=== PATIENT | female | born 1965 | race Caucasian/White ===

== ENCOUNTER 2018-07-18 03:04 | Inpatient (IN) | payer MEDICARE, OTHER ==
[2018-07-18 03:30] VITALS: BMI 29.0
--- NOTE | 2018-07-18 03:40 | PDOC ---
Attending Attestation - Resident Resident Name: Iván Lemus - ED Attending Attestation I have performed the following: I have examined & evaluated the patient, The case was reviewed & discussed with the resident, I agree w/resident's findings & plan - HPI HPI: 07/18/18 06:22 Pt comes with UTI and she states that she felt this way 5 years ago when she had stones, and she requred lithotripsy to remove the stone obstructions. Pt has left flank pain worse than right flnak pain. - Physicial Exam PE: 07/18/18 06:23 Agree with resident exam. - Medical Decision Making 07/18/18 06:24 Pt has UTI and she has mild hydro on the right and functional obstruction on the left and she will be admitted to the hospitalist. We will endorse to the AM ER team, who will endorse to the AM hospitalists. 07/18/18 06:41 Patient Name: GALA WALKER THIS IS A PRELIMINARY REPORT FROM [facility] DATE OF SERVICE: 2018-07-18 05:27:18 IMAGES: [id number] EXAM: CT abdomen and pelvis without contrast HISTORY: Concern for stone COMPARISON: None. FINDINGS: Abdomen Liver: Fatty infiltrated Spleen: Normal Pancreas: Normal [address] [facility] [address] [place] [address] Phone: [phone]) Fax: Email: [email or web address] Patient Information: : 1965 Order Type: Preliminary Name: DENISE CEDEÑO Sex: F Study Description: CT ABDOMEN AND PELVIS Modality: CT Location: [facility] Referring Physician: GERMAN LIZ Gallbladder: There is some increased attenuation within the gallbladder suggesting the presence of stones, or sludge Stomach: Normal Small bowel: Normal Large bowel: Normal Appendix: Normal Adrenals:Normal Kidneys: There is mild left-sided hydronephrosis. Ureter is normal in caliber. There is no focal stone identified Vascular: Normal Lymphatic: Normal Peritoneal: No free peritoneal air or fluid Pelvis: Uterus: normal Rectum: Normal Bladder: Normal The inferior thorax: Normal General: Skeletal: Normal Abdominal wall: Normal IMPRESSION: Mild left-sided hydronephrosis may be related to a functional obstruction of the left ureteropelvic junction. Correlation with history and urinalysis is recommended
[2018-07-18 04:02] LABS: URINE APPEARANCE CLOUDY; URINE BILIRUBIN NEGATIVE (<2.0 mg/dL); URINE COLOR LTYELLOW; URINE GLUCOSE (UA) NEGATIVE (NEGATIVE); URINE KETONE NEGATIVE (NEGATIVE); URINE LEUK ESTERASE 3+ (NEGATIVE); URINE NITRITE NEGATIVE (NEGATIVE); URINE PROTEIN 1+ (NEGATIVE); URINE UROBILINOGEN NEGATIVE mg/dL (0.2-1.0)
[2018-07-18 04:06] LABS: URINE BACTERIA FEW /hpf (NONE SEEN); URINE MUCUS RARE; YEAST MANY
[2018-07-18 04:18] LABS: BASO % 0.6 % (0-2.0); EOS % 0.4 % (0-4.5); HEMATOCRIT 38.5 % (32.4-45.2); HEMOGLOBIN 12.3 GM/dL (10.7-15.3); LYMPH % 9.5 % (8-40); MCHC 31.8 g/dl (32.0-36.0); MEAN CELL VOLUME 85.1 fl (80-96); MEAN PLT VOLUME 9.1 fl (7.5-11.1); MONO % 6.8 % (3.8-10.2); NEUT % 82.7 % (42.8-82.8); PLATELET COUNT 260 K/MM3 (134-434); RBC 4.53 M/mm3 (3.60-5.2); RDW 12.5 % (11.6-15.6); WHITE BLOOD COUNT 15.3 K/mm3 (4.0-10.0)
[2018-07-18] MEDS ORDERED: PIPERACILLIN/TAZOB 3.375 GM 3.375 GM in DEXTROSE 5%-WATER - 50 ML IVPB ONE (04:34)
[2018-07-18 04:35] LABS: ALBUMIN 3.5 g/dl (3.4-5.0); ALK PHOS 98 U/L (45-117); ANION GAP 7 MMOL/L (8-16); BILIRUBIN,TOTAL 0.5 mg/dL (0.2-1); BLOOD UREA NITROGEN 15 mg/dL (7-18); CALCIUM 8.7 mg/dL (8.5-10.1); CHLORIDE 100 mmol/L (98-107); CO2 26 mmol/L (21-32); GLUCOSE,RANDOM 201 mg/dL (74-106); POTASSIUM 4.2 mmol/L (3.5-5.1); SGOT/AST 53 U/L (15-37); SGPT/ALT 36 U/L (13-61); SODIUM 133 mmol/L (136-145); TOT PROT 7.6 g/dl (6.4-8.2)
[2018-07-18] MEDS ORDERED: SODIUM CHLORIDE 1,000 ML IV STA (04:36)
[2018-07-18] MEDS ORDERED: ACETAMINOPHEN 1000 MG/100 ML VIAL (NON FORMULARY) IVPB ONE (04:37)
[2018-07-18] MEDS ORDERED: ACETAMINOPHEN INJECTION 100 ML IVPB ONE (04:38)
[2018-07-18] MEDS ORDERED: PIPERACILLIN/TAZOB 3.375 GM 3.375 GM/50 ML BAG IVPB ONE (04:39)
[2018-07-18] MEDS ORDERED: FLUCONAZOLE 50 MG TABLET PO ONE (04:47)
[2018-07-18] MEDS ORDERED: FLUCONAZOLE 100 MG TABLET (UD) ONE (04:51)
[2018-07-18] MEDS ORDERED: FLUCONAZOLE 100 MG TABLET (UD) PO ONE (05:00)
--- NOTE | 2018-07-18 07:47 | PDOC ---
History of Present Illness - General Chief Complaint: Urinary Problem Stated Complaint: URINE PROBLEM Time Seen by Provider: 07/18/18 03:39 - History of Present Illness Initial Comments: 07/18/18 08:11 53f with pmh of cystic sling sor stress incontinence by dr. cage 2 years ago and kidney stones presents with dysuria and kidney pain for the past 3 days. No fever but chills overnight. No blood in the urine but foul smell appreciated. No difficulty passing urine just pain. Did not try taking any medications. Past History - Past Medical History Allergies/Adverse Reactions: Allergies Allergy/AdvReac Type Severity Reaction Status Date / Time No Known Drug Allergies Allergy Verified 07/18/18 03:41 Home Medications: Ambulatory Orders [place] Carbonate [Eskalith -] 150 mg PO AM 07/18/18 [place] Carbonate [Lithobid] 300 mg PO HS 07/18/18 Metformin HCl [Glucophage] 500 mg PO BID 07/18/18 Risperidone 2 mg PO HS 07/18/18 Venlafaxine HCl ER [Effexor Xr -] 300 mg PO DAILY 07/18/18 COPD: No Diabetes: Yes Hypercholesterolemia: Yes (SL ELEVATED) Psychiatric Problems: Yes - Suicide/Smoking/Psychosocial Hx Smoking History: Never smoked Have you smoked in the past 12 months: No Information on smoking cessation initiated: No Hx Alcohol Use: No Drug/Substance Use Hx: No Substance Use Type: None Hx Substance Use Treatment: No Review of Systems - Review of Systems Able to Perform ROS?: Yes Is the patient limited Iraqi proficient: No Constitutional: Yes: See HPI, Chills HEENTM: No: Symptoms Reported Respiratory: No: Symptoms reported Cardiac (ROS): No: Symptoms Reported ABD/GI: No: Symptoms Reported : Yes: See HPI Musculoskeletal: No: Symptoms Reported Integumentary: No: Symptoms Reported All Other Systems: Reviewed and Negative *Physical Exam - Vital Signs Last Vital Signs Temp Pulse Resp BP Pulse Ox 98.3 F 75 16 133/74 99 07/18/18 06:25 07/18/18 06:25 07/18/18 06:25 07/18/18 06:25 07/18/18 06:25 - Physical Exam General Appearance: Yes: Nourished, Appropriately Dressed. No: Apparent Distress HEENT: positive: EOMI, CHET, Normal ENT Inspection Respiratory/Chest: positive: Lungs Clear, Normal Breath Sounds. negative: Chest Tender, Respiratory Distress Cardiovascular: positive: Regular Rhythm, Regular Rate, S1, S2 Gastrointestinal/Abdominal: positive: Normal Bowel Sounds, Flat, Soft. negative : Tender Musculoskeletal: positive: CVA Tenderness (bilaterally) Extremity: positive: Normal Capillary Refill, Normal Inspection, Normal Range of Motion Integumentary: positive: Normal Color, Dry, Warm Neurologic: positive: Fully Oriented, Alert, Normal Mood/Affect ED Treatment Course - LABORATORY CBC & Chemistry Diagram: 07/18/18 04:05 07/18/18 04:05 - ADDITIONAL ORDERS Additional order review: Laboratory Results 07/18/18 07/18/18 07/18/18 04:05 03:50 03:50 Sodium 133 L Potassium 4.2 Chloride 100 Carbon Dioxide 26 Anion Gap 7 L BUN 15 Creatinine 1.0 Creat Clearance w eGFR 58.45 Random Glucose 201 H Calcium 8.7 Total Bilirubin 0.5 AST 53 H ALT 36 Alkaline Phosphatase 98 Total Protein 7.6 Albumin 3.5 Urine Color Ltyellow Urine Appearance Cloudy Urine pH 6.0 Ur Specific [place] 1.010 Urine Protein 1+ H Urine Glucose (UA) Negative Urine Ketones Negative Urine Blood 2+ H Urine Nitrite Negative Urine Bilirubin Negative Urine Urobilinogen Negative Ur Leukocyte Esterase 3+ H Urine WBC (Auto) 279 Urine RBC (Auto) 47 Urine Bacteria Few Urine Mucus Rare Urine Yeast Many Urine HCG, Qual Negative 07/18/18 04:05 RBC 4.53 MCV 85.1 MCHC 31.8 L RDW 12.5 MPV 9.1 Neutrophils % 82.7 Lymphocytes % 9.5 Monocytes % 6.8 Eosinophils % 0.4 Basophils % 0.6 - RADIOLOGY Radiology Studies Ordered: Category Date Time Status SPIRAL- RENAL-STONE CT [CT] Stat CT Scan 07/18/18 04:34 Taken - Medications Given in the ED: ED Medications Discontinued Medications Generic Name Dose Route Start Last Admin Trade Name Freq PRN Reason Stop Dose Admin Acetaminophen 1,000 mg 07/18/18 04:37 07/18/18 04:40 Ofirmev Injection - IVPB 07/18/18 04:38 1,000 mg ONCE ONE Administration Fluconazole 150 mg 07/18/18 05:00 07/18/18 05:01 Diflucan - PO 07/18/18 05:01 150 mg ONCE ONE Administration Piperacillin Sod/Tazobactam 50 mls @ 100 mls/hr 07/18/18 04:34 07/18/18 04:55 Sod 3.375 gm/ Dextrose IVPB 07/18/18 05:03 100 mls/hr ONCE ONE Administration Protocol Sodium Chloride 1,000 mls @ 1,000 mls/hr 07/18/18 04:36 07/18/18 04:40 Normal Saline - IV 07/18/18 05:35 1,000 mls/hr ASDIR STA Administration Medical Decision Making - Medical Decision Making 07/18/18 08:16 uti vs pyelonephritis vs nephrolithiasis UA positive for UTI. However spiral ct shows evidence of mild left nephrolithiasis and functional obstruction. Will admit to floors with urology consult. Pain control. 07/19/18 01:04 *DC/Admit/Observation/Transfer Diagnosis at time of Disposition: Complicated UTI (urinary tract infection) - Discharge Dispostion Condition at time of disposition: Improved Decision to Admit order: Yes - Referrals - Patient Instructions - Post Discharge Activity
--- NOTE | 2018-07-18 10:07 | HP ---
CHIEF COMPLAINT: burning on urination, L flank pain, fever PCP: HISTORY OF PRESENT ILLNESS: Pt is a 53 y/o F with PMH kidney stone requiring lithotripsy and prior sling placed by Dr. Walton in 2015. She presents to ED with 4 days of burning on urination associated with urinary frequency, and subjective fever with chills for one day as well as L flank pain. ER course was notable for: (1) vitals wnl (2) wbc 15.3, Na 133, UA pos for prot, blood, LE, wbc, many yeast (3) CTAP: L hydro, no stone visualized Recent Travel: denies PAST MEDICAL HISTORY: Depression PAST SURGICAL HISTORY: Bladder sling 2016 Social History: Smoking: denies Alcohol: denies Drugs: denies Family History: Allergies No Known Drug Allergies Allergy (Verified 07/18/18 03:41) HOME MEDICATIONS: Home Medications Medication Instructions Recorded [place] Carbonate [Eskalith -] 150 mg PO AM 07/18/18 [place] Carbonate [Lithobid] 300 mg PO HS 07/18/18 Metformin HCl [Glucophage] 500 mg PO BID 07/18/18 Risperidone 2 mg PO HS 07/18/18 Venlafaxine HCl ER [Effexor Xr -] 300 mg PO DAILY 07/18/18 REVIEW OF SYSTEMS CONSTITUTIONAL: fever, Absent: chills, diaphoresis, generalized weakness, malaise, loss of appetite, weight change HEENT: Absent: rhinorrhea, nasal congestion, throat pain, throat swelling, difficulty swallowing, mouth swelling, ear pain, eye pain, visual changes CARDIOVASCULAR: Absent: chest pain, syncope, palpitations, irregular heart rate, lightheadedness , peripheral edema RESPIRATORY: Absent: cough, shortness of breath, dyspnea with exertion, orthopnea, wheezing, stridor, hemoptysis GASTROINTESTINAL: Absent: abdominal pain, abdominal distension, nausea, vomiting, diarrhea, constipation, melena, hematochezia GENITOURINARY: dysuria, frequency, urgency, flank pain Absent: , hesitancy, hematuria, genital pain MUSCULOSKELETAL: Absent: myalgia, arthralgia, joint swelling, back pain, neck pain SKIN: Absent: rash, itching, pallor HEMATOLOGIC/IMMUNOLOGIC: Absent: easy bleeding, easy bruising, lymphadenopathy, frequent infections ENDOCRINE: Absent: unexplained weight gain, unexplained weight loss, heat intolerance, cold intolerance NEUROLOGIC: Absent: headache, focal weakness or paresthesias, dizziness, unsteady gait, seizure, mental status changes, bladder or bowel incontinence PSYCHIATRIC: depression Absent: anxiety, , suicidal or homicidal ideation, hallucinations. PHYSICAL EXAMINATION Vital Signs - 24 hr 07/18/18 07/18/18 07/18/18 03:29 06:25 09:14 Temperature 99.0 F 98.3 F 98.6 F Pulse Rate 92 H Pulse Rate [ 75 75 Right Radial] Respiratory 20 16 18 Rate Blood Pressure 153/89 Blood Pressure 133/74 142/86 [Right Arm] O2 Sat by Pulse 99 99 100 Oximetry (%) Gen: NAD, sitting in bed HEENT: NCAT, eomi Neck: supple, no jvd Cardio: rrr, normal s1s2, no mrg Pulm: cta b/l Abd: nondistended, soft, nontender, Mild-Moderate L flank tenderness to fist percussion Ext: no edema Laboratory Results - last 24 hr 07/18/18 07/18/18 07/18/18 03:50 03:50 04:05 WBC 15.3 H RBC 4.53 Hgb 12.3 Hct 38.5 MCV 85.1 MCH 27.0 MCHC 31.8 L RDW 12.5 Plt Count 260 MPV 9.1 Absolute Neuts (auto) 12.6 H Neutrophils % 82.7 Lymphocytes % 9.5 Monocytes % 6.8 Eosinophils % 0.4 Basophils % 0.6 Nucleated RBC % 0 Sodium Potassium Chloride Carbon Dioxide Anion Gap BUN Creatinine Creat Clearance w eGFR Random Glucose Calcium Total Bilirubin AST ALT Alkaline Phosphatase Total Protein Albumin Urine Color Ltyellow Urine Appearance Cloudy Urine pH 6.0 Ur Specific [place] 1.010 Urine Protein 1+ H Urine Glucose (UA) Negative Urine Ketones Negative Urine Blood 2+ H Urine Nitrite Negative Urine Bilirubin Negative Urine Urobilinogen Negative Ur Leukocyte Esterase 3+ H Urine WBC (Auto) 279 Urine RBC (Auto) 47 Urine Bacteria Few Urine Mucus Rare Urine Yeast Many Urine HCG, Qual Negative 07/18/18 04:05 WBC RBC Hgb Hct MCV MCH MCHC RDW Plt Count MPV Absolute Neuts (auto) Neutrophils % Lymphocytes % Monocytes % Eosinophils % Basophils % Nucleated RBC % Sodium 133 L Potassium 4.2 Chloride 100 Carbon Dioxide 26 Anion Gap 7 L BUN 15 Creatinine 1.0 Creat Clearance w eGFR 58.45 Random Glucose 201 H Calcium 8.7 Total Bilirubin 0.5 AST 53 H ALT 36 Alkaline Phosphatase 98 Total Protein 7.6 Albumin 3.5 Urine Color Urine Appearance Urine pH Ur Specific [place] Urine Protein Urine Glucose (UA) Urine Ketones Urine Blood Urine Nitrite Urine Bilirubin Urine Urobilinogen Ur Leukocyte Esterase Urine WBC (Auto) Urine RBC (Auto) Urine Bacteria Urine Mucus Urine Yeast Urine HCG, Qual ASSESSMENT/PLAN: Pt is a 53 y/o F with PMH renal stones, bladder sling who presented to ED with complaint of dysuria and urgency. Found to have L flank tenderness, UTI, and leukocytosis. Admitted for L pyelonephritis with hydronephrosis. #L pyelonephritis (complicated UTI) -? obstructive. Hydronephrosis on CT. No stone visualized -NB: hx procedure by Dr. Walton in 2016 -UA pos for UTI -leukocytosis -Zosyn/Diflucan given in ED -c/w Rocephin/Diflucan -UCx pending -NS -Uro consulted. Pending call back for recs #Depression -c/w home meds -Risperidone, [place], Venlafaxine #DM -DM diet -BGM ACHS -ISS ACHS #Mild hyponatremia -NS #FEN -NS -hyponatremia -DM diet #PPx -hold AC in anticipation of possible Uro procedure -SCDs #Dispo -Med/surg for pyelo with hydro Darwin Estrada MD PGY-2 IM Visit type - Emergency Visit Emergency Visit: Yes ED Registration Date: 07/18/18 Care time: The patient presented to the Emergency Department on the above date and was hospitalized for further evaluation of their emergent condition. - New Patient This patient is new to me today: Yes Date on this admission: 07/18/18 - Critical Care Critical Care patient: No
[2018-07-18] MEDS ORDERED: CEFTRIAXONE 1 GM in DEXTROSE 5%-WATER - 50 ML IVPB SCH (10:30)
--- NOTE | 2018-07-18 10:31 | PN ---
Teaching Attending Note Name of Resident: Darwin Estrada ATTENDING PHYSICIAN STATEMENT I saw and evaluated the patient. I reviewed the resident's note and discussed the case with the resident. I agree with the resident's findings and plan as documented. SUBJECTIVE: c/o having left flank pain. OBJECTIVE: Vital Signs Temperature 98.6 F 07/18/18 09:14 Pulse Rate 75 07/18/18 09:14 Respiratory Rate 18 07/18/18 09:14 Blood Pressure 142/86 07/18/18 09:14 O2 Sat by Pulse Oximetry (%) 100 07/18/18 09:14 General Appearance: well nourished, no acute distress. HEENT: positive: EOMI, CHET, Normal ENT Inspection Respiratory/Chest:CTA BL , no r/r/w Cardiovascular: Regular Rhythm, Regular Rate, S1, S2 Gastrointestinal/Abdominal: Normal Bowel Sounds, soft, nt, nd. Musculoskeletal: positive CVA Tenderness Extremity: no edema, pulses are positive Integumentary: positive: Normal Color, Dry, Warm Neurologic: Oriented x3 , cn 2-12 grossly intact. CBCD WBC 15.3 K/mm3 (4.0-10.0) H 07/18/18 04:05 RBC 4.53 M/mm3 (3.60-5.2) 07/18/18 04:05 Hgb 12.3 GM/dL (10.7-15.3) 07/18/18 04:05 Hct 38.5 % (32.4-45.2) 07/18/18 04:05 MCV 85.1 fl (80-96) 07/18/18 04:05 MCHC 31.8 g/dl (32.0-36.0) L 07/18/18 04:05 RDW 12.5 % (11.6-15.6) 07/18/18 04:05 Plt Count 260 K/MM3 (134-434) 07/18/18 04:05 MPV 9.1 fl (7.5-11.1) 07/18/18 04:05 CMP Sodium 133 mmol/L (136-145) L 07/18/18 04:05 Potassium 4.2 mmol/L (3.5-5.1) 07/18/18 04:05 Chloride 100 mmol/L (98-107) 07/18/18 04:05 Carbon Dioxide 26 mmol/L (21-32) 07/18/18 04:05 Anion Gap 7 MMOL/L (8-16) L 07/18/18 04:05 BUN 15 mg/dL (7-18) 07/18/18 04:05 Creatinine 1.0 mg/dL (0.55-1.3) 07/18/18 04:05 Creat Clearance w eGFR 58.45 (>60) 07/18/18 04:05 Random Glucose 201 mg/dL (74-106) H 07/18/18 04:05 Calcium 8.7 mg/dL (8.5-10.1) 07/18/18 04:05 Total Bilirubin 0.5 mg/dL (0.2-1) 07/18/18 04:05 AST 53 U/L (15-37) H 07/18/18 04:05 ALT 36 U/L (13-61) 07/18/18 04:05 Alkaline Phosphatase 98 U/L (45-117) 07/18/18 04:05 Total Protein 7.6 g/dl (6.4-8.2) 07/18/18 04:05 Albumin 3.5 g/dl (3.4-5.0) 07/18/18 04:05 Current Medications Generic Name Dose Route Start Last Admin Trade Name Nigel PRN Reason Stop Dose Admin Fluconazole 200 mg 07/18/18 10:21 Diflucan - PO 07/18/18 10:22 DAILY ONE Sodium Chloride 1,000 mls @ 75 mls/hr 07/18/18 10:00 Normal Saline - IV ASDIR SHAWN Ceftriaxone Sodium 1 gm/ 100 mls @ 200 mls/hr 07/18/18 10:30 Dextrose IVPB DAILY [facility] Protocol Insulin Aspart 1 vial 07/18/18 11:00 Novolog Vial Sliding Scale - SQ ACHS SHAWN Protocol [place] Carbonate 300 mg 07/18/18 22:00 Eskalith - PO HS [facility] [place] Carbonate 150 mg 07/19/18 07:00 Eskalith - PO AM SHAWN Morphine Sulfate 2 mg 07/18/18 09:47 Morphine Sulfate IVPUSH Q4H PRN PAIN LEVEL 1-5 Risperidone 2 mg 07/18/18 22:00 Risperdal - PO HS [facility] Venlafaxine HCl 300 mg 07/18/18 11:00 Effexor Xr - PO DAILY [facility] Home Medications Medication Instructions Recorded [place] Carbonate [Eskalith -] 150 mg PO AM 07/18/18 [place] Carbonate [Lithobid] 300 mg PO HS 07/18/18 Metformin HCl [Glucophage] 500 mg PO BID 07/18/18 Risperidone 2 mg PO HS 07/18/18 Venlafaxine HCl ER [Effexor Xr -] 300 mg PO DAILY 07/18/18 Urine Test Results Urine Color Ltyellow 07/18/18 03:50 Urine Appearance Cloudy 07/18/18 03:50 Urine pH 6.0 (5.0-8.0) 07/18/18 03:50 Ur Specific [place] 1.010 (1.010-1.035) 07/18/18 03:50 Urine Protein 1+ (NEGATIVE) H 07/18/18 03:50 Urine Glucose (UA) Negative (NEGATIVE) 07/18/18 03:50 Urine Ketones Negative (NEGATIVE) 07/18/18 03:50 Urine Blood 2+ (NEGATIVE) H 07/18/18 03:50 Urine Nitrite Negative (NEGATIVE) 07/18/18 03:50 Urine Bilirubin Negative (<2.0 mg/dL) 07/18/18 03:50 Ur Leukocyte Esterase 3+ (NEGATIVE) H 07/18/18 03:50 Urine Bacteria Few /hpf (NONE SEEN) 07/18/18 03:50 Urine Mucus Rare 07/18/18 03:50 ASSESSMENT AND PLAN: Patient is a 53 y/o Female with PMHx renal stones, bladder sling who presented to ED with complaint of dysuria and urgency. was found to have L flank tenderness, UTI, and leukocytosis and was found to have Left pyelonephritis with hydronephrosis. #Acute Left pyelonephritis due to UTI on IV Rocephin 2gm IV daily #Chronic depression continue home meds, Risperidone, [place], Venlafaxine #T2DM ; DM diet; BGM ACHS; ISS ACHS #Acute mild hyponatremia , urine for sodium since patient is on [place] to r/o SIADH on IV NS for now. dvt px: scd
[2018-07-18] MEDS: SODIUM CHLORIDE 1,000 ML IV SCH (10:52)
[2018-07-18] MEDS: INSULIN SLIDING SCALE (NOVOLOG) 1 VIAL SQ SCH ×4 (11:31→21:52)
[2018-07-18] MEDS ORDERED: cefTRIAXone SODIUM 1 GM VIAL ONE (11:57)
[2018-07-18] MEDS ORDERED: DEXTROSE 5%-WATER 100 ML IVPB ONE (11:57)
[2018-07-18] MEDS: FLUCONAZOLE 100 MG TABLET (UD) PO SCH (12:06)
[2018-07-18] MEDS ORDERED: PT OWN MED DRAWER 7, Y5N ONE (12:10)
[2018-07-18] MEDS: VENLAFAXINE HCL 75 MG E.R. CAPSULES (FP) PO SCH (12:13)
[2018-07-18 16:08] LABS: URINE APPEARANCE CLEAR; URINE BILIRUBIN NEGATIVE (<2.0 mg/dL); URINE COLOR STRAW; URINE GLUCOSE (UA) NEGATIVE (NEGATIVE); URINE KETONE NEGATIVE (NEGATIVE); URINE LEUK ESTERASE TRACE (NEGATIVE); URINE NITRITE NEGATIVE (NEGATIVE); URINE PROTEIN NEGATIVE (NEGATIVE); URINE UROBILINOGEN NEGATIVE mg/dL (0.2-1.0)
[2018-07-18] MEDS: risperiDONE 1 MG TABLET (FP) PO SCH (21:45)
[2018-07-18] MEDS: MORPHINE SULFATE 2 MG/ML VIAL IVPUSH PRN (21:45)
[2018-07-18] MEDS ORDERED: LITHIUM CARBONATE 300 MG CAPSULE (FP) PO SCH (22:00)
[2018-07-19] MEDS: SODIUM CHLORIDE 1,000 ML IV SCH ×3 (02:17→21:09)
[2018-07-19] MEDS: MORPHINE SULFATE 2 MG/ML VIAL IVPUSH PRN (06:13)
[2018-07-19] MEDS: INSULIN SLIDING SCALE (NOVOLOG) 1 VIAL SQ SCH ×4 (06:13→21:41)
[2018-07-19 07:48] LABS: BASO % 0.5 % (0-2.0); HEMATOCRIT 37.5 % (32.4-45.2); HEMOGLOBIN 11.9 GM/dL (10.7-15.3); LYMPH % 19.6 % (8-40); MCH 27.1 pg (25.7-33.7); MCHC 31.7 g/dl (32.0-36.0); MEAN CELL VOLUME 85.5 fl (80-96); MEAN PLT VOLUME 8.9 fl (7.5-11.1); MONO % 8.6 % (3.8-10.2); NEUT % 70.3 % (42.8-82.8); PLATELET COUNT 264 K/MM3 (134-434); RBC 4.38 M/mm3 (3.60-5.2); RDW 12.7 % (11.6-15.6); WHITE BLOOD COUNT 11.2 K/mm3 (4.0-10.0)
[2018-07-19 07:51] LABS: ALBUMIN 3.1 g/dl (3.4-5.0); ALK PHOS 89 U/L (45-117); ANION GAP 8 MMOL/L (8-16); BILIRUBIN,TOTAL 0.4 mg/dL (0.2-1); BLOOD UREA NITROGEN 11 mg/dL (7-18); CALCIUM 8.4 mg/dL (8.5-10.1); CHLORIDE 107 mmol/L (98-107); CO2 24 mmol/L (21-32); CREATININE 0.7 mg/dL (0.55-1.3); GLUCOSE,RANDOM 143 mg/dL (74-106); PHOSPHOROUS 3.3 mg/dL (2.5-4.9); POTASSIUM 4.3 mmol/L (3.5-5.1); SGOT/AST 69 U/L (15-37); SGPT/ALT 50 U/L (13-61); SODIUM 139 mmol/L (136-145); TOT PROT 6.9 g/dl (6.4-8.2)
[2018-07-19 07:52] LABS: INR 1.13 (0.83-1.09); PROTHROMBIN TIME (PATIENT) 13.3 SEC (9.7-13.0)
[2018-07-19] MEDS ORDERED: DEXTROSE 5%-WATER 100 ML IVPB ONE (09:54)
[2018-07-19] MEDS ORDERED: cefTRIAXone SODIUM 1 GM VIAL ONE (09:54)
[2018-07-19] MEDS: FLUCONAZOLE 100 MG TABLET (UD) PO SCH (09:58)
[2018-07-19] MEDS: CEFTRIAXONE 2 GM in DEXTROSE 5%-WATER 100 ML IVPB SCH (09:59)
[2018-07-19] MEDS ORDERED: LITHIUM CARBONATE 150 MG CAPSULE PO SCH (10:00)
[2018-07-19] MEDS: VENLAFAXINE HCL 75 MG E.R. CAPSULES (FP) PO SCH (10:03)
[2018-07-19] MEDS ORDERED: INSULIN (NOVOLOG) ASPART 100 UNITS/ML 10ML VIAL ONE ×2 (12:16→21:19)
--- NOTE | 2018-07-19 16:11 | PN ---
Physical Exam: SUBJECTIVE: Patient seen and examined. Pt. endorses pain in left flank, Morphine x 2 is given. Pt. denies blood in urine, fevers or dysuria. Pt. c/o headache 8/10 pain in a band like pattern around head. Light and sound had no effect on headache. OBJECTIVE: Vital Signs Period Temp Pulse Resp BP Sys/Mena Pulse Ox Last 24 Hr 98.8 F-99.1 F 75-81 16-20 144-150/85-93 96-98 GENERAL: The patient is awake, alert, and fully oriented, in no acute distress. HEAD: Normal with no signs of trauma. EYES: PERRL, extraocular movements intact, sclera anicteric, conjunctiva clear. No ptosis. ENT: Ears normal, nares patent, oropharynx clear without exudates, moist mucous membranes. LUNGS: Breath sounds equal, clear to auscultation bilaterally, no wheezes, no crackles, no accessory muscle use, No CVA tenderness. HEART: Regular rate and rhythm, S1, S2 without murmur ABDOMEN: Soft, nontender, nondistended, normoactive bowel sounds, no guarding, no rebound. EXTREMITIES: 2+ dorsal pedal, pulses, warm, well-perfused, no edema, no calf tenderness. NEUROLOGICAL: Normal speech, gait not observed. PSYCH: Normal mood, normal affect. SKIN: Warm, dry, normal turgor Laboratory Results - last 24 hr 07/18/18 07/18/18 07/18/18 15:06 16:59 21:51 WBC RBC Hgb Hct MCV MCH MCHC RDW Plt Count MPV Absolute Neuts (auto) Neutrophils % Lymphocytes % Monocytes % Eosinophils % Basophils % Nucleated RBC % PT with INR INR Sodium Potassium Chloride Carbon Dioxide Anion Gap BUN Creatinine Creat Clearance w eGFR POC Glucometer 195 121 Random Glucose Calcium Phosphorus Magnesium Total Bilirubin AST ALT Alkaline Phosphatase Total Protein Albumin Urine WBC (Auto) 20 Urine RBC (Auto) 7 Ur Random Sodium Ur Random Potassium Ur Random Chloride 07/19/18 07/19/18 07/19/18 06:00 06:12 06:30 WBC 11.2 H RBC 4.38 Hgb 11.9 Hct 37.5 MCV 85.5 MCH 27.1 MCHC 31.7 L RDW 12.7 Plt Count 264 MPV 8.9 Absolute Neuts (auto) 7.8 Neutrophils % 70.3 Lymphocytes % 19.6 D Monocytes % 8.6 Eosinophils % 1.0 D Basophils % 0.5 Nucleated RBC % 0 PT with INR INR Sodium Potassium Chloride Carbon Dioxide Anion Gap BUN Creatinine Creat Clearance w eGFR POC Glucometer 148 Random Glucose Calcium Phosphorus Magnesium Total Bilirubin AST ALT Alkaline Phosphatase Total Protein Albumin Urine WBC (Auto) Urine RBC (Auto) Ur Random Sodium 105 Ur Random Potassium 24.0 L Ur Random Chloride 116 07/19/18 07/19/18 07/19/18 06:30 06:30 11:04 WBC RBC Hgb Hct MCV MCH MCHC RDW Plt Count MPV Absolute Neuts (auto) Neutrophils % Lymphocytes % Monocytes % Eosinophils % Basophils % Nucleated RBC % PT with INR 13.30 H INR 1.13 H Sodium 139 Potassium 4.3 Chloride 107 Carbon Dioxide 24 Anion Gap 8 BUN 11 Creatinine 0.7 Creat Clearance w eGFR > 60 POC Glucometer 196 Random Glucose 143 H Calcium 8.4 L Phosphorus 3.3 Magnesium 2.0 Total Bilirubin 0.4 AST 69 H ALT 50 Alkaline Phosphatase 89 Total Protein 6.9 Albumin 3.1 L Urine WBC (Auto) Urine RBC (Auto) Ur Random Sodium Ur Random Potassium Ur Random Chloride Active Medications Current Medications Fluconazole (Diflucan -) 200 mg PO DAILY [facility] Last Admin: 07/19/18 09:58 Dose: 200 mg Sodium Chloride (Normal Saline -) 1,000 mls @ 75 mls/hr IV ASDIR SHAWN Last Admin: 07/19/18 09:59 Dose: Not Given Ceftriaxone Sodium 2 gm/ (Dextrose) 100 mls @ 200 mls/hr IVPB DAILY [facility]; Protocol Last Admin: 07/19/18 09:59 Dose: 200 mls/hr Insulin Aspart (Novolog Vial Sliding Scale -) 1 vial SQ ACHS SHAWN; Protocol Last Admin: 07/19/18 12:26 Dose: 2 units [place] Carbonate (Eskalith -) 600 mg PO HS SHAWN [place] Carbonate (Eskalith -) 300 mg PO AM [facility] Morphine Sulfate (Morphine Sulfate) 2 mg IVPUSH Q4H PRN PRN Reason: PAIN LEVEL 1-5 Last Admin: 07/19/18 06:13 Dose: 2 mg Risperidone (Risperdal -) 2 mg PO HS [facility] Last Admin: 07/18/18 21:45 Dose: 2 mg Venlafaxine HCl (Effexor Xr -) 300 mg PO DAILY [facility] Last Admin: 07/19/18 10:03 Dose: 300 mg Home Medications Medication Instructions Recorded [place] Carbonate [Lithobid] 2 tab PO HS 07/18/18 Metformin HCl [Glucophage] 500 mg PO BID 07/18/18 Risperidone 2 mg PO HS 07/18/18 Venlafaxine HCl ER [Effexor Xr -] 1 cap PO BID 07/18/18 [place] Carbonate [Eskalith -] 1 cap PO AM 07/19/18 ASSESSMENT/PLAN: Pt is a 53 y/o F with PMH renal stones, bladder sling who presented to ED with complaint of dysuria and urgency. Found to have L flank tenderness, UTI, and leukocytosis. Admitted for L. pyelonephritis with hydronephrosis. #Nephrology -L pyelonephritis (complicated UTI) Hydronephrosis on CT and US No stone visualized, however some UPJ stenosis observed. Hx. of procedure by Dr. Walton in 2015 UA+ for UTI Leukocytosis Zosyn/Diflucan given in ED c/w Rocephin/Diflucan UCx growing lactose fermenting gram neg bacilli 50k-60k CFUs NS Urology consult appreciated #Psychiatry -Depression c/w home meds Risperidone, [place], Venlafaxine #Endocrine -DM BGM ACHS ISS ACHS #F/E/N -c/w NS @ 75ml/hr. -monitor electrolytes and replete as needed; hyponatremia on admission -DM diet #DVT PPx -hold AC in anticipation of possible Urological procedure -SCDs #Dispo -Med/surg Visit type - Emergency Visit Emergency Visit: Yes ED Registration Date: 07/18/18 Care time: The patient presented to the Emergency Department on the above date and was hospitalized for further evaluation of their emergent condition. - New Patient This patient is new to me today: Yes Date on this admission: 07/19/18 - Critical Care Critical Care patient: No - Discharge Referral Referred to [facility] No
--- NOTE | 2018-07-19 16:53 | CON.GU ---
Consult - History of Present Illness History of Present Illness: 53 yo female known to me with stress incontinence s/p sling a few yrs ago. Now admitted with left flank pain and UTI. 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 UPJ stenosis - Past Medical History ...LMP: 05/29/18 - Alcohol/Substance Use Hx Alcohol Use: No - Smoking History Smoking history: Never smoked Have you smoked in the past 12 months: No Home Medications - Allergies Allergies/Adverse Reactions: Allergies Allergy/AdvReac Type Severity Reaction Status Date / Time No Known Drug Allergies Allergy Verified 07/18/18 03:41 - Home Medications Home Medications: Ambulatory Orders [place] Carbonate [Lithobid] 2 tab PO HS 07/18/18 Metformin HCl [Glucophage] 500 mg PO BID 07/18/18 Risperidone 2 mg PO HS 07/18/18 Venlafaxine HCl ER [Effexor Xr -] 1 cap PO BID 07/18/18 [place] Carbonate [Eskalith -] 1 cap PO AM 07/19/18 Physical Exam- Vital Signs: Vital Signs Temperature 99.1 F 07/19/18 05:00 Pulse Rate 80 07/19/18 05:00 Respiratory Rate 16 07/19/18 09:00 Blood Pressure 149/85 07/19/18 05:00 O2 Sat by Pulse Oximetry (%) 96 07/19/18 09:00 Renal/: Yes: CVA Tenderness - Left Labs: CBC, BMP 07/19/18 06:30 07/19/18 06:30 Imaging - Results Cat Scan: Report Reviewed Problem List - Problems (1) Pyelonephritis Assessment/Plan: abx while awiting cultures, will obtain nuclear med renal scan Code(s): N12 - TUBULO-INTERSTITIAL NEPHRITIS, NOT SPCF ACUTE OR CHRONIC
--- NOTE | 2018-07-19 20:00 | PN ---
Teaching Attending Note Name of Resident: Juan Carlos Meyers ATTENDING PHYSICIAN STATEMENT I saw and evaluated the patient. I reviewed the resident's note and discussed the case with the resident. I agree with the resident's findings and plan as documented. SUBJECTIVE: Patient is comfortable ,denies having low back pain. OBJECTIVE: Vital Signs Temperature 99.1 F 07/19/18 05:00 Pulse Rate 80 07/19/18 05:00 Respiratory Rate 16 07/19/18 09:00 Blood Pressure 149/85 07/19/18 05:00 O2 Sat by Pulse Oximetry (%) 96 07/19/18 09:00 General Appearance: well nourished, no acute distress. HEENT: positive: EOMI, CHET, Normal ENT Inspection Respiratory/Chest:CTA BL , no r/r/w Cardiovascular: Regular Rhythm, Regular Rate, S1, S2 Gastrointestinal/Abdominal: Normal Bowel Sounds, soft, nt, nd. Musculoskeletal: CVA Tenderness improving Extremity: no edema, pulses are positive Integumentary: positive: Normal Color, Dry, Warm Neurologic: Oriented x3 , cn 2-12 grossly intact. CBCD WBC 11.2 K/mm3 (4.0-10.0) H 07/19/18 06:30 RBC 4.38 M/mm3 (3.60-5.2) 07/19/18 06:30 Hgb 11.9 GM/dL (10.7-15.3) 07/19/18 06:30 Hct 37.5 % (32.4-45.2) 07/19/18 06:30 MCV 85.5 fl (80-96) 07/19/18 06:30 MCHC 31.7 g/dl (32.0-36.0) L 07/19/18 06:30 RDW 12.7 % (11.6-15.6) 07/19/18 06:30 Plt Count 264 K/MM3 (134-434) 07/19/18 06:30 MPV 8.9 fl (7.5-11.1) 07/19/18 06:30 CMP Sodium 139 mmol/L (136-145) 07/19/18 06:30 Potassium 4.3 mmol/L (3.5-5.1) 07/19/18 06:30 Chloride 107 mmol/L (98-107) 07/19/18 06:30 Carbon Dioxide 24 mmol/L (21-32) 07/19/18 06:30 Anion Gap 8 MMOL/L (8-16) 07/19/18 06:30 BUN 11 mg/dL (7-18) 07/19/18 06:30 Creatinine 0.7 mg/dL (0.55-1.3) 07/19/18 06:30 Creat Clearance w eGFR > 60 (>60) 07/19/18 06:30 Random Glucose 143 mg/dL (74-106) H 07/19/18 06:30 Calcium 8.4 mg/dL (8.5-10.1) L 07/19/18 06:30 Total Bilirubin 0.4 mg/dL (0.2-1) 07/19/18 06:30 AST 69 U/L (15-37) H 07/19/18 06:30 ALT 50 U/L (13-61) 07/19/18 06:30 Alkaline Phosphatase 89 U/L (45-117) 07/19/18 06:30 Total Protein 6.9 g/dl (6.4-8.2) 07/19/18 06:30 Albumin 3.1 g/dl (3.4-5.0) L 07/19/18 06:30 Current Medications Generic Name Dose Route Start Last Admin Trade Name Nigel PRN Reason Stop Dose Admin Fluconazole 200 mg 07/18/18 11:00 07/19/18 09:58 Diflucan - PO 200 mg DAILY SHAWN Administration Sodium Chloride 1,000 mls @ 75 mls/hr 07/18/18 10:00 07/19/18 09:59 Normal Saline - IV Not Given ASDIR SHAWN Ceftriaxone Sodium 2 gm/ 100 mls @ 200 mls/hr 07/18/18 11:00 07/19/18 09:59 Dextrose IVPB 200 mls/hr DAILY SHAWN Administration Protocol Insulin Aspart 1 vial 07/18/18 11:00 07/19/18 16:17 Novolog Vial Sliding Scale - SQ 2 units ACHS SHAWN Administration Protocol [place] Carbonate 600 mg 07/19/18 22:00 Eskalith - PO HS SHAWN [place] Carbonate 300 mg 07/20/18 07:00 Eskalith - PO AM SHAWN Morphine Sulfate 2 mg 07/18/18 09:47 07/19/18 06:13 Morphine Sulfate IVPUSH 2 mg Q4H PRN Administration PAIN LEVEL 1-5 Risperidone 2 mg 07/18/18 22:00 07/18/18 21:45 Risperdal - PO 2 mg HS SHAWN Administration Venlafaxine HCl 300 mg 07/18/18 11:00 07/19/18 10:03 Effexor Xr - PO 300 mg DAILY SHAWN Administration Home Medications Medication Instructions Recorded [place] Carbonate [Lithobid] 2 tab PO HS 07/18/18 Metformin HCl [Glucophage] 500 mg PO BID 07/18/18 Risperidone 2 mg PO HS 07/18/18 Venlafaxine HCl ER [Effexor Xr -] 1 cap PO BID 07/18/18 [place] Carbonate [Eskalith -] 1 cap PO AM 07/19/18 Urine Test Results Urine Color Straw 07/18/18 15:06 Urine Appearance Clear 07/18/18 15:06 Urine pH 7.0 (5.0-8.0) 07/18/18 15:06 Ur Specific [place] 1.006 (1.010-1.035) L 07/18/18 15:06 Urine Protein Negative (NEGATIVE) 07/18/18 15:06 Urine Glucose (UA) Negative (NEGATIVE) 07/18/18 15:06 Urine Ketones Negative (NEGATIVE) 07/18/18 15:06 Urine Blood 2+ (NEGATIVE) H 07/18/18 15:06 Urine Nitrite Negative (NEGATIVE) 07/18/18 15:06 Urine Bilirubin Negative (<2.0 mg/dL) 07/18/18 15:06 Ur Leukocyte Esterase Trace (NEGATIVE) 07/18/18 15:06 Urine Bacteria Few /hpf (NONE SEEN) 07/18/18 03:50 Urine Mucus Rare 07/18/18 03:50 ASSESSMENT AND PLAN: Patient is a 53 y/o Female with PMHx renal stones, bladder sling who presented to ED with complaint of dysuria and urgency. was found to have L flank tenderness, UTI, and leukocytosis and was found to have Left pyelonephritis with hydronephrosis. #Acute Left pyelonephritis due to UTI on IV Rocephin 2gm IV daily, and diflucan daily due to having yeast in ua moderate amount #Chronic depression continue home meds, Risperidone, [place], Venlafaxine #T2DM ; DM diet; BGM ACHS; ISS ACHS #Acute mild hyponatremia , urine for sodium since patient is on [place] to r/o SIADH on IV NS for now.
[2018-07-19] MEDS: risperiDONE 1 MG TABLET (FP) PO SCH (21:42)
[2018-07-19] MEDS: LITHIUM CARBONATE 300 MG CAPSULE (FP) PO SCH (21:42)
[2018-07-20] MEDS ORDERED: PT OWN MED DRAWER 7, Y5N ONE ×2 (05:46→22:02)
[2018-07-20] MEDS: INSULIN SLIDING SCALE (NOVOLOG) 1 VIAL SQ SCH ×4 (06:03→22:31)
[2018-07-20] MEDS: LITHIUM CARBONATE 300 MG CAPSULE (FP) PO SCH ×2 (06:04→22:32)
[2018-07-20] MEDS ORDERED: LITHIUM CARBONATE 300 MG CAPSULE (FP) PO SCH (07:00)
[2018-07-20 07:41] LABS: ANION GAP 7 MMOL/L (8-16); BLOOD UREA NITROGEN 12 mg/dL (7-18); CHLORIDE 104 mmol/L (98-107); CO2 24 mmol/L (21-32); CREATININE 0.7 mg/dL (0.55-1.3); GLUCOSE,RANDOM 154 mg/dL (74-106); MAGNESIUM 2.2 mg/dL (1.8-2.4); POTASSIUM 4.4 mmol/L (3.5-5.1); SODIUM 136 mmol/L (136-145)
[2018-07-20 07:46] LABS: BASO % 0.6 % (0-2.0); EOS % 1.5 % (0-4.5); HEMATOCRIT 39.9 % (32.4-45.2); HEMOGLOBIN 12.7 GM/dL (10.7-15.3); LYMPH % 24.6 % (8-40); MCH 27.2 pg (25.7-33.7); MCHC 31.9 g/dl (32.0-36.0); MEAN CELL VOLUME 85.1 fl (80-96); MEAN PLT VOLUME 9.1 fl (7.5-11.1); MONO % 9.1 % (3.8-10.2); NEUT % 64.2 % (42.8-82.8); PLATELET COUNT 282 K/MM3 (134-434); RBC 4.69 M/mm3 (3.60-5.2); RDW 12.7 % (11.6-15.6); WHITE BLOOD COUNT 9.8 K/mm3 (4.0-10.0)
[2018-07-20] MEDS ORDERED: DEXTROSE 5%-WATER 100 ML IVPB ONE (09:23)
[2018-07-20] MEDS ORDERED: cefTRIAXone SODIUM 1 GM VIAL ONE (09:23)
[2018-07-20] MEDS: CEFTRIAXONE 2 GM in DEXTROSE 5%-WATER 100 ML IVPB SCH (09:54)
[2018-07-20] MEDS: FLUCONAZOLE 100 MG TABLET (UD) PO SCH (09:57)
[2018-07-20] MEDS: VENLAFAXINE HCL 75 MG E.R. CAPSULES (FP) PO SCH (09:57)
--- NOTE | 2018-07-20 12:14 | PN ---
Physical Exam: SUBJECTIVE: Patient seen and examined. Pt. states that her menstruation started late today. It should have started on 06/28/18. PT. endorses a very regular cycle. Pt. denies fevers, chills or abdominal pain at this time. OBJECTIVE: Vital Signs Period Temp Pulse Resp BP Sys/Mena Pulse Ox Last 24 Hr 98.5 F-99.0 F 78-80 20-20 137-158/61-82 GENERAL: The patient is awake, alert, and fully oriented, in no acute distress. HEAD: Normal with no signs of trauma. EYES: PERRL, extraocular movements intact, sclera anicteric, conjunctiva clear. No ptosis. ENT: Ears normal, nares patent, oropharynx clear without exudates, moist mucous membranes. LUNGS: Breath sounds equal, clear to auscultation bilaterally, no wheezes, no crackles, no accessory muscle use, No CVA tenderness. HEART: Bradycardic regular rate and rhythm, S1, S2 without murmur ABDOMEN: Soft, nontender, nondistended, normoactive bowel sounds, no guarding, no rebound. EXTREMITIES: 2+ dorsal pedal, pulses, warm, well-perfused, no edema, no calf tenderness. NEUROLOGICAL: Normal speech, gait not observed. PSYCH: Normal mood, normal affect. SKIN: Warm, dry, normal turgor Laboratory Results - last 24 hr 07/18/18 07/19/18 07/19/18 11:50 17:31 21:41 WBC RBC Hgb Hct MCV MCH MCHC RDW Plt Count MPV Absolute Neuts (auto) Neutrophils % Lymphocytes % Monocytes % Eosinophils % Basophils % Nucleated RBC % Sodium Potassium Chloride Carbon Dioxide Anion Gap BUN Creatinine Creat Clearance w eGFR POC Glucometer 151 173 Random Glucose Calcium Phosphorus Magnesium [place]ana 0.3 L 07/20/18 07/20/18 07/20/18 06:02 06:30 06:30 WBC 9.8 RBC 4.69 Hgb 12.7 Hct 39.9 MCV 85.1 MCH 27.2 MCHC 31.9 L RDW 12.7 Plt Count 282 MPV 9.1 Absolute Neuts (auto) 6.3 Neutrophils % 64.2 Lymphocytes % 24.6 D Monocytes % 9.1 Eosinophils % 1.5 Basophils % 0.6 Nucleated RBC % 0 Sodium 136 Potassium 4.4 Chloride 104 Carbon Dioxide 24 Anion Gap 7 L BUN 12 Creatinine 0.7 Creat Clearance w eGFR > 60 POC Glucometer 148 Random Glucose 154 H Calcium 9.0 Phosphorus 4.0 Magnesium 2.2 Hana Active Medications Current Medications Fluconazole (Diflucan -) 200 mg PO DAILY [facility] Last Admin: 07/20/18 09:57 Dose: 200 mg Sodium Chloride (Normal Saline -) 1,000 mls @ 75 mls/hr IV ASDIR [facility] Last Admin: 07/19/18 21:09 Dose: 75 mls/hr Ertapenem 1 gm/ Sodium (Chloride) 50 mls @ 100 mls/hr IVPB DAILY [facility]; Protocol Insulin Aspart (Novolog Vial Sliding Scale -) 1 vial SQ ACHS [facility]; Protocol Last Admin: 07/20/18 11:41 Dose: Not Given [place] Carbonate (Eskalith -) 600 mg PO HS [facility] Last Admin: 07/19/18 21:42 Dose: 600 mg [place] Carbonate (Eskalith -) 300 mg PO AM [facility] Last Admin: 07/20/18 06:04 Dose: 300 mg Morphine Sulfate (Morphine Sulfate) 2 mg IVPUSH Q4H PRN PRN Reason: PAIN LEVEL 1-5 Last Admin: 07/19/18 06:13 Dose: 2 mg Risperidone (Risperdal -) 2 mg PO [facility] Last Admin: 07/19/18 21:42 Dose: 2 mg Venlafaxine HCl (Effexor Xr -) 300 mg PO DAILY [facility] Last Admin: 07/20/18 09:57 Dose: 300 mg Home Medications Medication Instructions Recorded [place] Carbonate [Lithobid] 2 tab PO HS 07/18/18 Metformin HCl [Glucophage] 500 mg PO BID 07/18/18 Risperidone 2 mg PO HS 07/18/18 Venlafaxine HCl ER [Effexor Xr -] 1 cap PO BID 07/18/18 [place] Carbonate [Eskalith -] 1 cap PO AM 07/19/18 ASSESSMENT/PLAN: Pt is a 53 y/o F with PMH renal stones, bladder sling who presented to ED with complaint of dysuria and urgency. Found to have L flank tenderness, UTI, and leukocytosis. Admitted for L. pyelonephritis with hydronephrosis. #Nephrology -L pyelonephritis (complicated UTI) Hydronephrosis on CT and US No stone visualized, however some UPJ stenosis observed. Hx. of procedure by Dr. Walton in 2016- Awaiting Nuclear Medicine Renal Scan tomorrow. UA+ for UTI Leukocytosis UCx growing ESB E.coli f/u BCx.- NTD D/c Ceftriaxone; started Ertapenem, c/w diflucan Zosyn/Diflucan given in ED NS Urology consult appreciated Contact Precautions #Psychiatry -Depression c/w home meds Risperidone, [place], Venlafaxine #Endocrine -DM BGM ACHS ISS ACHS #F/E/N -c/w NS @ 75ml/hr. -monitor electrolytes and replete as needed; hyponatremia on admission -DM diet #DVT PPx -hold AC in anticipation of possible Urological procedure -SCDs #Dispo -Med/surg Visit type - Emergency Visit Emergency Visit: Yes ED Registration Date: 07/18/18 Care time: The patient presented to the Emergency Department on the above date and was hospitalized for further evaluation of their emergent condition. - New Patient This patient is new to me today: No - Critical Care Critical Care patient: No - Discharge Referral Referred to [facility] Med P.C.: No
--- NOTE | 2018-07-20 13:08 | PN ---
Progress Note (short form) - Note Progress Note: ID Consult dictated Complicated UTI + Urine c/s ESBL Obtain BC Substitute ertapenem
[2018-07-20] MEDS ORDERED: ERTAPENEM SODIUM - 1 GRAM 1 GM/50 ML BAG IVPB SCH (13:15)
[2018-07-20] MEDS: ERTAPENEM SODIUM 1 GM in SODIUM CHLORIDE 50 ML IVPB SCH (15:57)
[2018-07-20] MEDS: SODIUM CHLORIDE 1,000 ML IV SCH (15:58)
[2018-07-20] MEDS ORDERED: INSULIN (NOVOLOG) ASPART 100 UNITS/ML 10ML VIAL ONE (17:54)
[2018-07-20] MEDS: risperiDONE 1 MG TABLET (FP) PO SCH (22:32)
[2018-07-21] MEDS: SODIUM CHLORIDE 1,000 ML IV SCH ×2 (05:10→23:12)
[2018-07-21] MEDS: INSULIN SLIDING SCALE (NOVOLOG) 1 VIAL SQ SCH ×4 (06:04→21:42)
[2018-07-21] MEDS: LITHIUM CARBONATE 300 MG CAPSULE (FP) PO SCH ×2 (06:06→21:37)
[2018-07-21 08:00] LABS: BASO % 0.5 % (0-2.0); EOS % 2.2 % (0-4.5); HEMATOCRIT 36.8 % (32.4-45.2); HEMOGLOBIN 11.8 GM/dL (10.7-15.3); LYMPH % 28.7 % (8-40); MCH 27.2 pg (25.7-33.7); MCHC 32.2 g/dl (32.0-36.0); MEAN CELL VOLUME 84.5 fl (80-96); MEAN PLT VOLUME 8.7 fl (7.5-11.1); MONO % 7.6 % (3.8-10.2); PLATELET COUNT 301 K/MM3 (134-434); RBC 4.35 M/mm3 (3.60-5.2); RDW 12.5 % (11.6-15.6); WHITE BLOOD COUNT 9.6 K/mm3 (4.0-10.0)
[2018-07-21 08:38] LABS: ANION GAP 9 MMOL/L (8-16); BLOOD UREA NITROGEN 13 mg/dL (7-18); CALCIUM 8.5 mg/dL (8.5-10.1); CHLORIDE 105 mmol/L (98-107); CO2 24 mmol/L (21-32); CREATININE 0.6 mg/dL (0.55-1.3); GLUCOSE,RANDOM 135 mg/dL (74-106); POTASSIUM 4.4 mmol/L (3.5-5.1); SODIUM 138 mmol/L (136-145)
[2018-07-21] MEDS ORDERED: PT OWN MED DRAWER 7, Y5N ONE ×2 (09:21→21:16)
[2018-07-21] MEDS: ERTAPENEM SODIUM 1 GM in SODIUM CHLORIDE 50 ML IVPB SCH (09:40)
[2018-07-21] MEDS: FLUCONAZOLE 100 MG TABLET (UD) PO SCH (09:40)
[2018-07-21] MEDS: VENLAFAXINE HCL 75 MG E.R. CAPSULES (FP) PO SCH (09:40)
--- NOTE | 2018-07-21 10:51 | PN ---
Physical Exam: SUBJECTIVE: Patient seen and examined. No acute events overnight. Pt. denies any complaints at this time. Pt. states she has not had a BM in 4 days and that she usually goes every 2 days. Pt. denies any other issues at this time. OBJECTIVE: Vital Signs Period Temp Pulse Resp BP Sys/Mena Pulse Ox Last 24 Hr 97.7 F-98.8 F 63-80 18-20 126-150/69-99 97 GENERAL: The patient is awake, alert, and fully oriented, in no acute distress. HEAD: Normal with no signs of trauma. EYES: sclera anicteric, conjunctiva clear. No ptosis. ENT: Ears normal, nares patent, oropharynx clear without exudates, moist mucous membranes. LUNGS: Breath sounds equal, clear to auscultation bilaterally, no wheezes, no crackles, no accessory muscle use, No CVA tenderness. HEART: Bradycardic regular rate and rhythm, S1, S2 without murmur ABDOMEN: Soft, nontender, nondistended, normoactive bowel sounds, no guarding, no rebound. EXTREMITIES: 2+ dorsal pedal, pulses, warm, well-perfused, no edema, no calf tenderness. NEUROLOGICAL: Normal speech, gait not observed. PSYCH: Normal mood, normal affect. SKIN: Warm, dry, normal turgor Laboratory Results - last 24 hr 07/20/18 07/20/18 07/20/18 11:40 16:02 22:29 WBC RBC Hgb Hct MCV MCH MCHC RDW Plt Count MPV Absolute Neuts (auto) Neutrophils % Lymphocytes % Monocytes % Eosinophils % Basophils % Nucleated RBC % Sodium Potassium Chloride Carbon Dioxide Anion Gap BUN Creatinine Creat Clearance w eGFR POC Glucometer 121 169 149 Random Glucose Calcium Phosphorus Magnesium 07/21/18 07/21/18 07/21/18 06:04 06:30 06:30 WBC 9.6 RBC 4.35 Hgb 11.8 Hct 36.8 MCV 84.5 MCH 27.2 MCHC 32.2 RDW 12.5 Plt Count 301 MPV 8.7 Absolute Neuts (auto) 5.9 Neutrophils % 61.0 Lymphocytes % 28.7 Monocytes % 7.6 Eosinophils % 2.2 Basophils % 0.5 Nucleated RBC % 0 Sodium 138 Potassium 4.4 Chloride 105 Carbon Dioxide 24 Anion Gap 9 BUN 13 Creatinine 0.6 Creat Clearance w eGFR > 60 POC Glucometer 149 Random Glucose 135 H Calcium 8.5 Phosphorus 4.0 Magnesium 2.0 Active Medications Current Medications Fluconazole (Diflucan -) 200 mg PO DAILY [facility] Last Admin: 07/21/18 09:40 Dose: 200 mg Sodium Chloride (Normal Saline -) 1,000 mls @ 75 mls/hr IV ASDIR [facility] Last Admin: 07/21/18 05:10 Dose: 75 mls/hr Ertapenem 1 gm/ Sodium (Chloride) 50 mls @ 100 mls/hr IVPB DAILY [facility]; Protocol Last Admin: 07/21/18 09:40 Dose: 100 mls/hr Insulin Aspart (Novolog Vial Sliding Scale -) 1 vial SQ ACHS [facility]; Protocol Last Admin: 07/21/18 06:04 Dose: Not Given [place] Carbonate (Eskalith -) 600 mg PO HS [facility] Last Admin: 07/20/18 22:32 Dose: 600 mg [place] Carbonate (Eskalith -) 300 mg PO AM [facility] Last Admin: 07/21/18 06:06 Dose: 300 mg Risperidone (Risperdal -) 2 mg PO HS [facility] Last Admin: 07/20/18 22:32 Dose: 2 mg Venlafaxine HCl (Effexor Xr -) 300 mg PO DAILY [facility] Last Admin: 07/21/18 09:40 Dose: 300 mg Home Medications Medication Instructions Recorded [place] Carbonate [Lithobid] 2 tab PO HS 07/18/18 Metformin HCl [Glucophage] 500 mg PO BID 07/18/18 Risperidone 2 mg PO HS 07/18/18 Venlafaxine HCl ER [Effexor Xr -] 1 cap PO BID 07/18/18 [place] Carbonate [Eskalith -] 1 cap PO AM 07/19/18 ASSESSMENT/PLAN: Pt is a 53 y/o F with PMH renal stones, bladder sling who presented to ED with complaint of dysuria and urgency. Found to have L flank tenderness, UTI, and leukocytosis. Admitted for L. pyelonephritis with hydronephrosis. #Nephrology -L pyelonephritis (complicated UTI) f/u Rpt. Renal US Per Dr. Walton, Renal scan will be done outpatient, will treat UTI per ID and primary team management. F/u as outpatient with Urology Hydronephrosis on CT and US No stone visualized, however some UPJ stenosis observed. Hx. of procedure by Dr. Walton in 2016 UA+ for UTI Leukocytosis UCx growing ESBL+ E.coli f/u BCx.- NTD D/c Ceftriaxone; started Ertapenem-Pt. will likely need PICC line for discharge as Nitrofuratonin is not used for upper urinary tract infections D/c Diflucan Zosyn/Diflucan given in ED b/c UA was positive for yeast NS Urology consult appreciated Contact Precautions #Psychiatry -Depression c/w home meds Risperidone, [place], Venlafaxine #Endocrine -DM BGM ACHS ISS ACHS #F/E/N -c/w NS @ 75ml/hr. -monitor electrolytes and replete as needed; hyponatremia on admission -DM diet #DVT PPx -hold AC in anticipation of possible Urological procedure -SCDs #Dispo -Med/surg Visit type - Emergency Visit Emergency Visit: Yes ED Registration Date: 07/18/18 Care time: The patient presented to the Emergency Department on the above date and was hospitalized for further evaluation of their emergent condition. - New Patient This patient is new to me today: No - Critical Care Critical Care patient: No - Discharge Referral Referred to [facility] Med P.C.: No
[2018-07-21] MEDS: DOCUSATE SODIUM 100 MG CAPSULE (FP) PO SCH (11:42)
--- NOTE | 2018-07-21 18:20 | PN ---
Teaching Attending Note Name of Resident: Juan Carlos Meyers ATTENDING PHYSICIAN STATEMENT I saw and evaluated the patient. I reviewed the resident's note and discussed the case with the resident. I agree with the resident's findings and plan as documented. SUBJECTIVE: No fever or chills . No abd pain, feels much better OBJECTIVE: NAD CV: RRr Lungs: CTAB Abd: soft, NT, ND , NL BS , no CVA tenderness ASSESSMENT AND PLAN: 53 y/o lady with h/o nephrolithiasis who presented with dysuria and was found to have ESBL UTI /pyelonephritis 1- ESBL compilicated UTI/Pyelonephritis : - cont ertapenem - will arrange for PICc tomorrow - recheck renal US to evaluate mild hydro - d/w uro, renal scan is recommended as out pt 2 - Dm : SSI anticipate dc tomorrow with IV abx ( home or in infusion center ) . will d/w SW
[2018-07-21] MEDS ORDERED: INSULIN (NOVOLOG) ASPART 100 UNITS/ML 10ML VIAL ONE (21:15)
[2018-07-21] MEDS: risperiDONE 1 MG TABLET (FP) PO SCH (21:37)
[2018-07-21] MEDS ORDERED: SENNOSIDES 8.6MG TABLET (FP) PO SCH (22:00)
[2018-07-22] MEDS ORDERED: PT OWN MED DRAWER 7, Y5N ONE ×2 (05:38→10:29)
[2018-07-22] MEDS: LITHIUM CARBONATE 300 MG CAPSULE (FP) PO SCH (07:04)
[2018-07-22] MEDS: INSULIN SLIDING SCALE (NOVOLOG) 1 VIAL SQ SCH ×3 (07:05→17:09)
[2018-07-22 08:01] LABS: HEMATOCRIT 37.3 % (32.4-45.2); HEMOGLOBIN 11.8 GM/dL (10.7-15.3); MCH 26.9 pg (25.7-33.7); MCHC 31.7 g/dl (32.0-36.0); MEAN CELL VOLUME 84.8 fl (80-96); MEAN PLT VOLUME 8.6 fl (7.5-11.1); PLATELET COUNT 311 K/MM3 (134-434); RBC 4.39 M/mm3 (3.60-5.2); RDW 12.5 % (11.6-15.6); WHITE BLOOD COUNT 8.2 K/mm3 (4.0-10.0)
[2018-07-22 08:09] LABS: ANION GAP 8 MMOL/L (8-16); BLOOD UREA NITROGEN 14 mg/dL (7-18); CALCIUM 8.5 mg/dL (8.5-10.1); CHLORIDE 105 mmol/L (98-107); CO2 25 mmol/L (21-32); CREATININE 0.7 mg/dL (0.55-1.3); GLUCOSE,RANDOM 136 mg/dL (74-106); POTASSIUM 4.7 mmol/L (3.5-5.1); SODIUM 138 mmol/L (136-145)
[2018-07-22] MEDS ORDERED: PICC LINE 8 ML FLUSH PROTOCOL IVPUSH PRN (09:30)
[2018-07-22] MEDS: ERTAPENEM SODIUM 1 GM in SODIUM CHLORIDE 50 ML IVPB SCH (10:32)
[2018-07-22] MEDS: DOCUSATE SODIUM 100 MG CAPSULE (FP) PO SCH (10:33)
[2018-07-22] MEDS: VENLAFAXINE HCL 75 MG E.R. CAPSULES (FP) PO SCH (10:33)
--- NOTE | 2018-07-22 12:24 | CONS ---
INFECTIOUS DISEASE CONSULTATION DATE OF CONSULTATION: 06/19/2018 HISTORY OF PRESENT ILLNESS: The patient is a 53-year-old female who was evaluated for a complicated urinary tract infection. She has a history of nephrolithiasis, and stress incontinence, status post bladder sling. She reports, 4 days prior to admission, developing dysuria, urinary frequency, urgency, and chills associated with left flank pain. She presented to the hospital where CAT scan showed a left hydronephrosis with possible stenosis of the left ureteropelvic junction. Her course was complicated by chills and foul-smelling urine. She was noted to have an elevated white blood cell count. A urinalysis showed many white cells. Urine culture grew ESBL. Patient continues to complain of left flank pain. She has remained afebrile. She was seen in consultation by Urology. A renal scan was ordered. Patient is well known to Dr. Walton, with history of stress incontinence, a sling procedure was performed a few years ago. PAST MEDICAL HISTORY: Positive for nephrolithiasis, diabetes mellitus. PAST SURGICAL HISTORY: Status post bladder sling. ALLERGIES: No known allergies. MEDICATIONS: [place], Glucophage, risperidone, Effexor. SOCIAL HISTORY: Lives at home with family members. Nonsmoker. Nondrinker. SYSTEMS REVIEW: Neurologic: No loss of consciousness, seizure activity, or focal weakness. Cardiac: Negative chest pain or palpitations. Respiratory: Negative cough or sputum production. Gastrointestinal: Negative vomiting or diarrhea. Genitourinary: As per HPI. LABORATORY DATA: White count 9.8, hematocrit 39.9, platelet count 282. Creatinine 0.7. Urinalysis 279 white cells. Urine culture ESBL. PHYSICAL EXAMINATION: General: On physical examination, she is awake and alert. She is not acutely toxic appearing. Vital signs: Temperature 98.8, blood pressure 127/69, pulse 80, regular, respirations 20 per minute. Eyes: Sclerae are anicteric. Heart: Heart sounds S1, S2. Lungs: Clear. Abdomen: Soft. There is some left CVA tenderness elicited on exam. Extremities: Negative for edema. IMPRESSION: 1. Complicated urinary tract infection, extended-spectrum beta-lactamase. 2. Probable acute left pyelonephritis. 3. Possible ureteral obstruction versus stenosis. 4. Diabetes mellitus. PLAN: Obtain blood cultures. Rule out sepsis secondary to genitourinary focus. Substitute ertapenem 1 g IV piggyback every 24 hours. Contact precautions. Urology followup. Thank you for the kind referral. CHRISTOPHER DASILVA M.D. EDDIE/[id number]
--- NOTE | 2018-07-22 13:08 | DS ---
Physical Exam: SUBJECTIVE: Patient seen and examined. Pt. has not had a BM in 5 days. Usually has one every 2 days. No acute events overnight. Pt. denies any other complaints at this time. OBJECTIVE: Vital Signs Period Temp Pulse Resp BP Sys/Mena Pulse Ox Last 24 Hr 98.0 F-98.5 F 64-79 18-20 128-145/71-83 PHYSICAL EXAM GENERAL: The patient is awake, alert, and fully oriented, in no acute distress. EYES: Sclera anicteric, conjunctiva clear. ENT: Moist mucous membranes. LUNGS: Breath sounds equal, clear to auscultation bilaterally, no wheezes, no crackles, no accessory muscle use. HEART: Regular rate and rhythm, S1, S2 without murmur, rub or gallop. ABDOMEN: Soft, nontender, nondistended, normoactive bowel sounds, no guarding, no rebound, tympanic to percussion EXTREMITIES: 2+ dorsal pedal pulses, no calf tenderness, warm, well-perfused, no edema. NEUROLOGICAL: Normal speech, gait not observed. PSYCH: Normal mood, normal affect. SKIN: Warm, dry, normal turgor, no rashes or lesions noted. LABS Laboratory Results - last 24 hr 07/21/18 07/21/18 07/22/18 17:32 21:41 06:30 WBC 8.2 RBC 4.39 Hgb 11.8 Hct 37.3 MCV 84.8 MCH 26.9 MCHC 31.7 L RDW 12.5 Plt Count 311 MPV 8.6 Sodium Potassium Chloride Carbon Dioxide Anion Gap BUN Creatinine Creat Clearance w eGFR POC Glucometer 114 143 Random Glucose Calcium Phosphorus Magnesium 07/22/18 07/22/18 07/22/18 06:30 07:04 11:53 WBC RBC Hgb Hct MCV MCH MCHC RDW Plt Count MPV Sodium 138 Potassium 4.7 Chloride 105 Carbon Dioxide 25 Anion Gap 8 BUN 14 Creatinine 0.7 Creat Clearance w eGFR > 60 POC Glucometer 148 110 Random Glucose 136 H Calcium 8.5 Phosphorus 4.0 Magnesium 2.0 HOSPITAL COURSE: Date of Admission:07/18/18 Date of Discharge: 07/22/18 Pt. admitted for complicated UTI. Renal US and CT Abdomen and Pelvis left hydronephrosis with no visualization of stone. UA positive for UTI with yeast. Ucx. were take Pt. started on broad spectrum Abx. Urology consult appreciated. Anticoagulation was held d/t anticipation of possible urological procedure. SCDs were used instead and early ambulation was encouraged. UCx. positive for ESBL+ Ecoli, sensitivities received and Pt. started on Ertapenem d/t inability of other antibiotics to get to upper urinary tract. PICC line was inserted for outpatient infusions. ID consult appreciated. Hospital course discussed and agreed upon with Pt. and medical staff. Minutes to complete discharge: 36 Discharge Summary Reason For Visit: UTI Current Active Problems Complicated UTI (urinary tract infection) (Acute) Depression (Acute) Diabetes (Acute) Hydronephrosis determined by ultrasound (Acute) Hyponatremia (Acute) Pyelonephritis (Acute) Condition: Improved - Instructions Diet, Activity, Other Instructions: You came in for left flank pain and found to have a Urinary Tract Infection. We gave you IV antibiotics. We are starting you on a new antibiotic Ertapenem daily for 7 more days Please take your medication as prescribed. Please continue taking your home medications as prescribed. Please follow up with your Primary Care Physician within 1 week Please follow up with your Urologist, Dr. Walton, within 1 week for a Nuclear Medicine Renal Scan. Please return to the ED if you are experiencing fevers, chills, worsening flank pain, redness in urine, pain on urination or decreased urination. Referrals: Viraj Walton MD [Staff Physician] - 1 Week Omi Mckinley [Non Staff, Medical] - 1 Week Disposition: VNS/HOME HEALTH CARE - Home Medications Comprehensive Discharge Medication List: Ambulatory Orders [place] Carbonate [Lithobid] 2 tab PO HS 07/18/18 Metformin HCl [Glucophage] 500 mg PO BID 07/18/18 Risperidone 2 mg PO HS 07/18/18 Venlafaxine HCl ER [Effexor Xr -] 1 cap PO BID 07/18/18 [place] Carbonate [Eskalith -] 1 cap PO AM 07/19/18 Ertapenem Sodium - 1 Gram [Invanz (Pre-Docked)] 1 gm IVPB DAILY #8 bag 07/22/18 This patient is new to me today: No Emergency Visit: Yes ED Registration Date: 07/18/18 Care time: The patient presented to the Emergency Department on the above date and was hospitalized for further evaluation of their emergent condition. Critical Care patient: No - Discharge Referral Referred to [facility] Med P.C.: No
--- NOTE | 2018-07-22 13:48 | PN ---
Teaching Attending Note Name of Resident: Juan Carlos Meyers ATTENDING PHYSICIAN STATEMENT I saw and evaluated the patient. I reviewed the resident's note and discussed the case with the resident. I agree with the resident's findings and plan as documented. SUBJECTIVE: No fever or chills. No abd pain no . No N/V OBJECTIVE: NAD CV: RRR Lungs: CTAB Abd: soft, NT, ND , NL BS , no CVA tenderness ASSESSMENT AND PLAN: 53 y/o lady with h/o nephrolithiasis who presented with dysuria and was found to have ESBL UTI /pyelonephritis 1- ESBL compilicated UTI/Pyelonephritis : - cont ertapenem for total of 10 days( day 3 today) - renal Us with resolution of hydro . -renal scan is recommended as out pt - f/u with uro - PICC line to complete Abx 2 - Dm :resme home metformin dc home
[2018-07-22 13:52] VITALS: BP 141/79; PULSE 68; TEMP 98.1
[2018-07-22] MEDS: SODIUM CHLORIDE 1,000 ML IV SCH (15:02)
== END 2018-07-22 17:17 | disposition home health service (06) | DRG 690 ==
LOC: JER 03:04 → JERBED 08:06 → J6S 09:29
PROVIDERS: ADMIT Internal Medicine; ATTEND Internal Medicine
DX: N10 Acute pyelonephritis (principal); E87.1 Hypo-osmolality and hyponatremia; N13.6 Pyonephrosis; K76.0 Fatty (change of) liver, not elsewhere classified; E11.9 Type 2 diabetes mellitus without complications; E78.5 Hyperlipidemia, unspecified; R35.0 Frequency of micturition; F32.9 Major depressive disorder, single episode, unspecified; Z79.84 Long term (current) use of oral hypoglycemic drugs
CPT/HCPCS: 36415; 36569; 74176; 76775-TC; 77001-TC-FY; 80048; 80053; 80178; 81003; 81015; 82436; 82962; 83735; 84100; 84133; 84300; 84703; 85025; 85027; 85610; 87040; 87086; 87186; 99284-25; C1751; J0131; J2794; J7030

== ENCOUNTER 2022-12-12 18:15 | Emergency (ER) | payer MEDICARE, OTHER ==
[2022-12-12 18:26] VITALS: BP 156/85; PULSE 96; RESP 18; TEMP 98.1; BMI 27.4
[2022-12-12 21:51] LABS: EPI CELLS 6 /uL (0-25.1); HYALINE CASTS 1 /uL (0-3.1); URINE APPEARANCE CLEAR; URINE BACTERIA 8989 /uL (0-1359); URINE BILIRUBIN NEGATIVE (NEGATIVE); URINE COLOR YELLOW; URINE GLUCOSE (UA) NEGATIVE (NEGATIVE); URINE KETONE TRACE (NEGATIVE); URINE LEUK ESTERASE TRACE (NEGATIVE); URINE NITRITE POSITIVE (NEGATIVE); URINE PROTEIN NEGATIVE (NEGATIVE); URINE RBC 11 /uL (0-23.9); URINE WBC 36 /uL (0-25.8)
[2022-12-12 21:53] LABS: HCG,QUALITATIVE URINE Negative
[2022-12-12] MEDS ORDERED: NITROFURANTOIN MACROCRYSTAL 50 MG CAPSULE (FP) PO ONE (23:00)
[2022-12-12] MEDS ORDERED: KETOROLAC TROMETHAMINE 30 MG/1 ML VIAL IM ONE (23:01)
[2022-12-12] MEDS ORDERED: LIDOCAINE 5% TOPICAL PATCH TP ONE (23:01)
[2022-12-12] MEDS ORDERED: DEXAMETHASONE SOD PHOSPHATE 10 MG/1 ML VIAL IM ONE (23:01)
[2022-12-12] MEDS ORDERED: diazePAM 5 MG TABLET PO ONE (23:01)
[2022-12-12] MEDS ORDERED: KETOROLAC TROMETHAMINE 30 MG/1 ML VIAL ONE (23:03)
[2022-12-12] MEDS ORDERED: LIDOCAINE 5% TOPICAL PATCH ONE (23:03)
[2022-12-12] MEDS ORDERED: DEXAMETHASONE SOD PHOSPHATE 10 MG/1 ML VIAL ONE (23:03)
[2022-12-12] MEDS ORDERED: diazePAM 5 MG TABLET ONE (23:03)
[2022-12-12] MEDS ORDERED: NITROFURANTOIN MACROCRYSTAL 50 MG CAPSULE (FP) ONE (23:07)
[2022-12-13] MEDS ORDERED: LIDOCAINE PATCH REMOVAL MC ONE (11:00)
== END 2022-12-12 23:27 | disposition home or self-care (01) ==
LOC: JERFT 18:15
PROC: 3E023GC Introduction of Other Therapeutic Substance into Muscle, Percutaneous Approach (ICD-10-PCS; principal; 2022-12-12)
DX: N39.0 Urinary tract infection, site not specified (principal)
CPT/HCPCS: 72100-TC-FY; 81003; 84703; 87086; 87186; 96372; 99284-25

== ENCOUNTER 2024-10-22 17:20 | Emergency (ER) | payer MEDICARE, OTHER ==
[2024-10-22 17:30] VITALS: BP 171/80; PULSE 76; RESP 18; TEMP 98; BMI 27.7
[2024-10-22] MEDS ORDERED: METHOCARBAMOL 500 MG TABLET ONE (18:10)
[2024-10-22] MEDS ORDERED: ACETAMINOPHEN 500 MG TABLET (FP) ONE (18:10)
[2024-10-22] MEDS: ACETAMINOPHEN 500 MG TABLET (FP) PO ONE (18:11)
[2024-10-22] MEDS: METHOCARBAMOL 500 MG TABLET PO ONE (18:11)
== END 2024-10-22 19:22 | disposition home or self-care (01) ==
LOC: JER 17:20
DX: S43.402A Unspecified sprain of left shoulder joint, initial encounter (principal); M25.522 Pain in left elbow; W01.0XXA Fall on same level from slipping, tripping and stumbling without subsequent striking against object, initial encounter
CPT/HCPCS: 73030-TC-LT-FY; 73070-TC-LT-FY; 99283-25